=== PATIENT | female | born 1995 | race Hispanic/Latino ===

== ENCOUNTER 2017-11-30 18:52 | Emergency (ER) | payer OTHER ==
[2017-11-30] MEDS ORDERED: NA CHLORIDE 0.9% 1,000 ML ONE (20:54)
[2017-11-30 21:08] LABS: Absolute Lymphocytes (CBC) 1.8 K/uL (0.7-4.9); Absolute Monocytes 0.7 K/uL (0.1-1.3); Absolute Neutrophil 8.4 K/uL (1.8-8.0); Basophils % 0.4 % (0-1.3); Eosinophils % 1.5 % (0-4.4); Hematocrit 34.9 % (36.0-45.0); Lymphocytes % 16.4 % (15.3-44.8); MCH 28.3 pg (27.0-35.0); MCV 87.5 fL (80-100); MPV 8.1 fL (7.6-11.3); Monocytes % 6.2 % (3.3-12.3); RBC Red Blood Cell Count 3.98 M/uL (3.86-4.86)
[2017-11-30 21:21] LABS: Bicarbonate 24 mEq/L (21-31); Glucose Level 80 mg/dL (65-120); Lipase 23 U/L (22-51); Potassium 3.9 mEq/L (3.6-5.0); Sodium Level 134 mEq/L (135-145)
[2017-11-30 21:28] LABS: ALT/SGPT 36 IU/L (10-60); AST/SGOT 45 IU/L (10-42); Albumin 3.6 g/dL (3.2-5.5); Alkaline Phosphatase 88 IU/L (42-121); Amylase Level 44 U/L (28-100); BUN Blood Urea Nitrogen 9 mg/dL (6-20); Bilirubin Direct 0.1 mg/dL (0-0.2); Bilirubin Total 0.3 mg/dL (0.3-1.2); Protein, Total 7.7 g/dL (6.0-8.3)
[2017-11-30] MEDS ORDERED: CEFTRIAXONE/SWI 1gm 1 GM/10 ML SYR ONE (21:55)
[2017-11-30] MEDS ORDERED: AMOX/K CLAV 875 MG TAB ONE (21:55)
[2017-11-30 22:38] LABS: Urine Blood NEGATIVE (NEG); Urine Glucose NEGATIVE (NEG); Urine Protein NEGATIVE (NEG)
[2017-11-30 22:48] LABS: Urine Amorphous Sediment 3+ /HPF (NONE SEEN); Urine Bacteria >50 /HPF (<20); Urine Culture Reflex Order NOT NEEDED; Urine Mucus LIGHT /HPF (NONE SEEN); Urine RBC NONE SEEN /HPF (NONE SEEN)
--- NOTE | 2017-11-30 22:48 | ER ---
Nurse's Notes [facility] Name: Denita Rodriguez Age: 22 yrs Sex: Female : 1995 Arrival Date: 11/30/2017 Time: 18:59 Bed 20 Private MD: Diagnosis: related conditions, unspecified, third trimester;Abdominal tenderness;Cystitis Presentation: 11/30 19:18 Note Patient sent to Labor and delivery for abdominal pain at 28 weeks . aj 20:25 Presenting complaint: Patient states: Reports lower abdominal soreness that started in aj right flank. Evaluated by L\T\D prior to arrival. Transition of care: patient was not received from another setting of care. Onset of symptoms was November 30, 2017. Risk Assessment: Do you want to hurt yourself or someone else? Patient reports no desire to harm self or others. Care prior to arrival: None. 20:25 Method Of Arrival: Ambulatory aj 20:25 Acuity: KAROL 3 aj 21:00 Initial Sepsis Screen: Does the patient meet any 2 criteria? No. Patient's initial mg2 sepsis screen is negative. Does the patient have a suspected source of infection? No. Patient's initial sepsis screen is negative. Triage Assessment: 20:26 General: Appears in no apparent distress. comfortable, Behavior is calm, cooperative, aj appropriate for age. Pain: Complains of pain in right lower quadrant and left lower quadrant. Neuro: Level of Consciousness is awake, alert, obeys commands, Oriented to person, place, time, situation, Appropriate for age. Respiratory: Airway is patent Trachea midline Respiratory effort is even, unlabored, Respiratory pattern is regular, symmetrical. GI: Reports lower abdominal pain. Derm: Skin is intact, is healthy with good turgor, Skin is pink, warm \T\ dry. normal. KAIAKO KURA TUARUA: 20:26 LMP 05/13/2017 aj 20:48 2, Full Term 1, Premature 0, 0, Living 0 leatha Historical: - Allergies: 20:26 SHELLFISH; aj - Home Meds: 20:26 None [Active]; aj - PMHx: 20:26 None; aj - PSHx: 20:26 None; aj - Immunization history:: Adult Immunizations up to date. - Social history:: Smoking status: Patient/guardian denies using tobacco. - Ebola Screening: : Patient negative for fever greater than or equal to 101.5 degrees Fahrenheit, and additional compatible Ebola Virus Disease symptoms Patient denies exposure to infectious person Patient denies travel to an Ebola-affected area in the 21 days before illness onset No symptoms or risks identified at this time. Screenin:07 Abuse screen: Denies threats or abuse. Denies injuries from another. Nutritional mg2 screening: No deficits noted. Tuberculosis screening: No symptoms or risk factors identified. Fall Risk IV access (20 points). Assessment: 21:00 GI: Bowel sounds present X 4 quads. Abd is non tender. mg2 21:05 General: Appears in no apparent distress. comfortable, Behavior is calm, cooperative. mg2 Pain: Complains of pain in lower abdominal pain Pain does not radiate. Quality of pain is described as aching, Pain began gradually, since morning. Neuro: Level of Consciousness is awake, alert, obeys commands, Oriented to person, place, time, situation. Cardiovascular: Capillary refill < 3 seconds Patient's skin is warm and dry. Respiratory: Airway is patent Respiratory effort is even, unlabored, Respiratory pattern is regular, symmetrical. GI: Reports lower abdominal pain. : No signs and/or symptoms were reported regarding the genitourinary system. EENT: No signs and/or symptoms were reported regarding the EENT system. Derm: Skin is intact, Skin is pink, warm \T\ dry. normal. Musculoskeletal: No signs and/or symptoms reported regarding the musculoskeletal system. 21:08 Reassessment: patient sent for Ultrasound abdomen. mg2 Vital Signs: 20:26 BP 107 / 64; Pulse 100; Resp 18; Temp 97.7; Pulse Ox 99% on R/A; Weight 69.85 kg; aj Height 5 ft. 3 in. (160.02 cm); 22:01 BP 102 / 69; Pulse 98; Resp 18; Pulse Ox 98% on R/A; Pain 3/10; mg2 20:26 Body Mass Index 27.28 (69.85 kg, 160.02 cm) aj ED Course: 18:59 Patient arrived in ED. sb2 20:26 Triage completed. aj 20:26 Arm band placed on left wrist. Patient placed in waiting room, Patient notified of wait aj time. 20:37 Nathaniel Villanueva MD is Attending Physician. [facility] 20:48 Gardose, Yaniv, RN is Primary Nurse. mg2 21:00 Patient has correct armband on for positive identification. mg2 21:07 Inserted saline lock: 20 gauge in right antecubital area, using aseptic technique. mg2 Blood collected. by ALVAREZ Reyes. 21:11 US OB Limited In Process Unspecified. EDMS 22:48 Lory Moses MD is Referral Physician. [facility] 22:54 No provider procedures requiring assistance completed. IV discontinued, intact, mg2 bleeding controlled, No redness/swelling at site. Pressure dressing applied. Administered Medications: 21:43 Drug: NS 0.9% 1000 ml Route: IV; Rate: 1 bolus; Site: right antecubital; mg2 22:53 Follow up: Response: No adverse reaction; IV Status: Completed infusion mg2 22:00 Drug: Rocephin - (cefTRIAXone) 1 grams Route: IVPB; Infused Over: 30 mins; Site: right mg2 antecubital; 22:53 Follow up: Response: No adverse reaction; IV Status: Completed infusion mg2 22:00 Drug: Augmentin 875 mg Route: PO; mg2 22:53 Follow up: Response: No adverse reaction mg2 Outcome: 22:48 Discharge ordered by . leatha 22:54 Discharged to home ambulatory, with family. mg2 22:54 Condition: stable 22:54 Discharge instructions given to patient, family, Instructed on discharge instructions, follow up and referral plans. medication usage, Demonstrated understanding of instructions, follow-up care, medications, Prescriptions given X 2. 22:56 Patient left the ED. mg2 Signatures: Dispatcher [employer] Suzanne Corona RN RN aj Anderson, Corey, MD MD cha Billeau, Sheri sb2 Yaniv Adhikari RN RN mg2
--- NOTE | 2017-11-30 22:48 | EDPHYS ---
Physician Documentation [facility] Name: Denita Rodriguez Age: 22 yrs Sex: Female : 1995 Arrival Date: 11/30/2017 Time: 18:59 Bed 20 Private MD: ED Physician Nathaniel Villanueva HPI: 11/30 20:48 This 22 yrs old Female presents to ER via Ambulatory with complaints of leatha Abdominal Pain. 20:48 The patient presents with abdominal pain in the lower abdomen, abdominal distention in leatha the upper abdomen, in the lower abdomen. Onset: The symptoms/episode began/occurred 1 day(s) ago. The patient presents to the emergency department with abdominal pain, of the right lower quadrant and left lower quadrant, that started this morning, described as crampy. The estimated gestational age is 28 weeks. 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 - Social history:: Smoking status: Patient/guardian denies using tobacco. - Ebola Screening: : Patient negative for fever greater than or equal to 101.5 degrees Fahrenheit, and additional compatible Ebola Virus Disease symptoms Patient denies exposure to infectious person Patient denies travel to an Ebola-affected area in the 21 days before illness onset No symptoms or risks identified at this time. ROS: 20:48 Constitutional: Negative for fever, chills, and weight loss, Eyes: Negative for injury, leatha pain, redness, and discharge, ENT: Negative for injury, pain, and discharge, Neck: Negative for injury, pain, and swelling, Cardiovascular: Negative for chest pain, palpitations, and edema, Respiratory: Negative for shortness of breath, cough, wheezing, and pleuritic chest pain, Back: Negative for injury and pain, : Negative for injury, bleeding, discharge, and swelling, MS/Extremity: Negative for injury and deformity, Skin: Negative for injury, rash, and discoloration, Neuro: Negative for headache, weakness, numbness, tingling, and seizure, Psych: Negative for depression, anxiety, suicide ideation, homicidal ideation, and hallucinations, Allergy/Immunology: Negative for hives, rash, and allergies, Endocrine: Negative for neck swelling, polydipsia, polyuria, polyphagia, and marked weight changes, Hematologic/Lymphatic: Negative for swollen nodes, abnormal bleeding, and unusual bruising. 20:48 Abdomen/GI: Positive for abdominal pain, abdominal distension, of the right lower quadrant and left lower quadrant. Exam: 20:48 Constitutional: This is a well developed, well nourished patient who is awake, alert, leatha and in no acute distress. Head/Face: Normocephalic, atraumatic. Eyes: Pupils equal round and reactive to light, extra-ocular motions intact. Lids and lashes normal. Conjunctiva and sclera are non-icteric and not injected. Cornea within normal limits. Periorbital areas with no swelling, redness, or edema. ENT: Nares patent. No nasal discharge, no septal abnormalities noted. Tympanic membranes are normal and external auditory canals are clear. Oropharynx with no redness, swelling, or masses, exudates, or evidence of obstruction, uvula midline. Mucous membranes moist. Neck: Trachea midline, no thyromegaly or masses palpated, and no cervical lymphadenopathy. Supple, full range of motion without nuchal rigidity, or vertebral point tenderness. No Meningismus. Chest/axilla: Normal chest wall appearance and motion. Nontender with no deformity. No lesions are appreciated. Cardiovascular: Regular rate and rhythm with a normal S1 and S2. No gallops, murmurs, or rubs. Normal PMI, no JVD. No pulse deficits. Respiratory: Lungs have equal breath sounds bilaterally, clear to auscultation and percussion. No rales, rhonchi or wheezes noted. No increased work of breathing, no retractions or nasal flaring. Back: No spinal tenderness. No costovertebral tenderness. Full range of motion. Female : Normal external genitalia. Skin: Warm, dry with normal turgor. Normal color with no rashes, no lesions, and no evidence of cellulitis. MS/ Extremity: Pulses equal, no cyanosis. Neurovascular intact. Full, normal range of motion. Neuro: Awake and alert, GCS 15, oriented to person, place, time, and situation. Cranial nerves II-XII grossly intact. Motor strength 5/5 in all extremities. Sensory grossly intact. Cerebellar exam normal. Normal gait. Psych: Awake, alert, with orientation to person, place and time. Behavior, mood, and affect are within normal limits. 20:48 Abdomen/GI: Inspection: distension, that is moderate, gravid appearance, is noted, Bowel sounds: normal, Palpation: mild abdominal tenderness, in the right lower quadrant and left lower quadrant, Liver: no appreciated palpable abnormalities, Hernia: not appreciated. Vital Signs: 20:26 BP 107 / 64; Pulse 100; Resp 18; Temp 97.7; Pulse Ox 99% on R/A; Weight 69.85 kg; aj Height 5 ft. 3 in. (160.02 cm); 22:01 BP 102 / 69; Pulse 98; Resp 18; Pulse Ox 98% on R/A; Pain 3/10; mg2 20:26 Body Mass Index 27.28 (69.85 kg, 160.02 cm) aj [facility]: 20:37 Patient medically screened. [facility] 20:51 Data reviewed: vital signs, nurses notes, lab test result(s), EKG, radiologic studies, leatha ultrasound. 11/30 20:46 Order name: Amylase, Serum; Complete Time: 21:37 [facility] 11/30 20:46 Order name: Basic Metabolic Panel; Complete Time: 21:37 [facility] 11/30 20:46 Order name: CBC with Diff; Complete Time: 21:37 [facility] 11/30 20:46 Order name: Creatinine for Radiology; Complete Time: 21:37 [facility] 11/30 20:46 Order name: Hepatic Function; Complete Time: 21:37 [facility] 11/30 20:46 Order name: Lipase; Complete Time: 21:37 [facility] 11/30 20:46 Order name: Urine Microscopic Only [facility] 11/30 20:46 Order name: Urine Culture [facility] 11/30 20:47 Order name: Abo/rh Typing; Complete Time: 21:37 [facility] 11/30 20:47 Order name: US OB Limited [facility] 11/30 21:48 Order name: Urine Dipstick--Ancillary (enter results); Complete Time: 22:48 wi 11/30 21:48 Order name: Urine --Ancillary (enter results); Complete Time: 22:48 wi 11/30 20:46 Order name: IV Saline Lock; Complete Time: 21:43 [facility] 11/30 20:46 Order name: Labs collected and sent; Complete Time: 21:43 [facility] 11/30 20:46 Order name: Urine Dipstick-Ancillary (obtain specimen); Complete Time: 21:43 [facility] 11/30 20:47 Order name: NPO; Complete Time: 21:43 [facility] Administered Medications: 21:43 Drug: NS 0.9% 1000 ml Route: IV; Rate: 1 bolus; Site: right antecubital; mg2 22:53 Follow up: Response: No adverse reaction; IV Status: Completed infusion mg2 22:00 Drug: Rocephin - (cefTRIAXone) 1 grams Route: IVPB; Infused Over: 30 mins; Site: right mg2 antecubital; 22:53 Follow up: Response: No adverse reaction; IV Status: Completed infusion mg2 22:00 Drug: Augmentin 875 mg Route: PO; mg2 22:53 Follow up: Response: No adverse reaction mg2 Disposition: 11/30/17 22:48 Discharged to Home. Impression: related conditions, unspecified, third trimester, Abdominal tenderness, Cystitis. - Condition is Stable. - Discharge Instructions: Abdominal Pain, Adult, Dysuria, Abdominal Pain, Adult, [id number], Third Trimester of , [id number]. - Prescriptions for Augmentin 500- 125 mg Oral Tablet - take 1 tablet by ORAL route every 8 hours for 7 days; 21 tablet. Vitamin 27- 0.8 mg Oral Tablet - take 1 tablet by ORAL route once daily; 30 tablet. - Medication Reconciliation Form, Thank You Letter, Antibiotic Education, Prescription Opioid Use form. - Follow up: Private Physician; When: 2 - 3 days; Reason: Recheck today's complaints, Continuance of care, Re-evaluation by your physician. Follow up: Lory Moses; When: 2 - 3 days; Reason: Recheck today's complaints, Re-evaluation by your physician. - Problem is new. - Symptoms have improved. Signatures: Dispatcher [employer] Suzanne Corona RN RN aj Anderson, Corey, MD MD cha Gardose, Michele, RN RN mg2 Corrections: (The following items were deleted from the chart) 21:51 20:46 FHT's ordered. [facility] ao 22:56 22:48 11/30/2017 22:48 Discharged to Home. Impression: related conditions, mg2 unspecified, third trimester; Abdominal tenderness; Cystitis. Condition is Stable. Discharge Instructions: Abdominal Pain, Adult, Abdominal Pain, Adult, [id number], Third Trimester of , [id number], Dysuria. Prescriptions for Augmentin 500-125 mg Oral Tablet - take 1 tablet by ORAL route every 8 hours for 7 days; 21 tablet, Vitamin 27-0.8 mg Oral Tablet - take 1 tablet by ORAL route once daily; 30 tablet. and Forms are Medication Reconciliation Form, Thank You Letter, Antibiotic Education, Prescription Opioid Use. Follow up: Private Physician; When: 2 - 3 days; Reason: Recheck today's complaints, Continuance of care, Re-evaluation by your physician. Follow up: Lory Moses; When: 2 - 3 days; Reason: Recheck today's complaints, Re-evaluation by your physician. Problem is new. Symptoms have improved. leatha
--- NOTE | 2017-12-01 08:25 | RAD REPORT ---
EXAM DESCRIPTION: US - OB Limited - 11/30/2017 9:10 pm CLINICAL HISTORY: , abdominal cramping Preliminary findings provided at the time of the study. COMPARISON: None. FINDINGS: Limited OB sonography was performed. A single cephalic presenting gestation is identified. Heart rate is 163 BPM. No gross anatomic abnormality seen. Small venous lakes are identified in an anterior placenta. No abruption, marginal hematoma or other a cute placental finding. Amniotic fluid volume appears normal. IMPRESSION: Limited OB sonography shows single gestation with normal heart rate and no gross anatomi c abnormality. No acute placenta or amniotic fluid finding.
== END 2017-11-30 22:56 | disposition home or self-care (01) ==
LOC: ER 18:52
DX: O23.13 Infections of bladder in pregnancy, third trimester (principal); Z3A.28 28 weeks gestation of pregnancy; Z91.013 Allergy to seafood
CPT/HCPCS: 36415; 76815; 80048; 80076; 81003; 81015; 81025; 82150; 83690; 85025; 86900; 86901; 87086; 87088; 96361; 96365; 99284; J0696; J7030